=== PATIENT | male | born 1985 | race Caucasian/White ===

== ENCOUNTER 2018-06-20 20:18 | Emergency (ER) | payer OTHER, SELFPAY ==
[2018-06-20 20:34] VITALS: BP 148/66; PULSE 77; RESP 18; TEMP 36.4; O2SAT 99; BMI 25.0
--- NOTE | 2018-06-20 23:18 | PC.NURSE ---
2100: Flushed pt's right with 1l of Normal saline.
[2018-06-21] MEDS: ERYTHROMYCIN OPHTH 1 GM OINT 1 APPLIC EYE-RIGHT (00:46)
[2018-06-21 00:51] VITALS: BP 136/78; PULSE 69; RESP 16; TEMP 36.6; O2SAT 98
--- NOTE | 2018-06-21 06:39 | ED_ITS ---
HPI - Eye Problem General Chief complaint: Eye Problems Stated complaint: ROPE COATING IN EYE Time Seen by Provider: 06/20/18 20:49 Source: patient Mode of arrival: ambulatory Limitations: no limitations History of Present Illness HPI Narrative: Healthy 32-year-old male presents to the emergency department after a work-related injury to his right eye. 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 His tetanus is current he denies the use of corrective vision. He denies other injury and is otherwise well and free of complaints MD chief complaint: eye pain, eye redness, eye injury and vision change Onset (ago): minute(s) Onset description: sudden Duration: constant Location: right eye Eye Symptoms: burning, redness, pain and blurry vision Place: work Mechanism: chemical exposure Severity: mild If Pain, Quality: burning Associated symptoms: none Treatments Prior to Arrival: none Related Data Allergies Allergy/AdvReac Type Severity Reaction Status Date / Time No Known Allergies Allergy Uncoded 06/20/18 20:44 Review of Systems Review of Systems All systems reviewed & are unremarkable except as noted in HPI and below Constitutional Denies chills, Denies fever(s), Denies lethargy and Denies weakness Eyes Reports change in vision, Denies eye discharge, Reports irritation, Denies loss of vision and Reports eye pain ENT Ears, Nose, Mouth, and Throat: Denies change in voice, Denies neck pain and Denies sore throat Cardiovascular Denies chest pain, Denies irregular heart rhythm, Denies lightheadedness, Denies palpitations, Denies dyspnea, Denies dyspnea on exertion and Denies orthopnea Respiratory Denies cough, Denies dyspnea, Denies dyspnea on exertion and Denies wheezing Gastrointestinal Gastrointestinal: Denies abdominal pain, Denies change in bowel habits, Denies diarrhea, Denies nausea and Denies vomiting Genitourinary Denies hematuria, Denies flank pain, Denies urinary incontinence and Denies urinary urgency Musculoskeletal Denies neck pain Integumentary/Breasts Denies pruritus, Denies erythema, Denies rash and Denies wounds Neurologic Denies confusion, Denies loss of vision and Denies weakness Psychiatric Denies anxiety, Denies confusion, Denies depression, Denies homicidal ideation and Denies suicidal ideation Endocrine Denies palpitations Hematologic/Lymphatic Denies easy bruising Allergic/Immunologic Denies wheezing [facility] Social History Smoking Status: Never smoker Exam Narrative Exam Narrative: GEN: AOx3 and in mild distress EYES: Pupils are equal, round, and reactive to light and accommodation. Extraoccular muscles are intact bilaterally. Minimal injection to right eye. No foreign bodies or abrasions noted under Wood's lamp, upper lid everted. We are unable to obtain floor seen anywhere in the hospital. Visual acuity noted in nursing notes. He has near complete resolution of symptoms with use of proparacaine CHEST: Lungs are clear to auscultation bilaterally and free of wheezes, rales, or rhonchi. Heart rate is regular rhythm, there are no murmurs, clicks, rubs, or gallops. There is no chest wall tenderness. ABD: Abdomen is soft and nontender. There is no guarding or rebound. Bowel sounds are normal in all 4 quadrants. There is no mass or organomegaly. EXT: Full painless ROM of all extremities with no loss of sensation or strength. SKIN: Warm, pink, and dry. No erythema or rash Initial Vital Signs Initial Vital Signs: Vital Signs Temperature 97.6 F 06/20/18 20:34 Pulse Rate 77 06/20/18 20:34 Respiratory Rate 18 06/20/18 20:34 Blood Pressure 148/66 H 06/20/18 20:34 Pulse Oximetry 99 06/20/18 20:34 Course Orders Ordered: Discontinued Medications Erythromycin (Erythromycin Ophth Oint) 1 applic EYE-RIGHT NOW ONE Stop: 06/21/18 00:33 Last Admin: 06/21/18 00:46 Dose: 1 applic Reevaluation(s) Reevaluation #1: Patient doing much better after above-stated therapies Consultations Consultation #1: Call to Ophthalmology at our review whom is happy to accept my call. After discussion of the case, including 2 L normal saline and flushed until pH 7.0. She recommends use of erythromycin ointment and follow up with Ophthalmology within 1 week unless there is any change clinically that would dictate a more prompt follow-up Vital Signs - 8 hr 06/21/18 00:51 Temperature 98 F Pulse Rate 69 Respiratory Rate 16 Blood Pressure 136/78 Pulse Oximetry 98 MDM - Eye Problem Lab Data Point of Care Testing pH,Tear Film,POC Measurement pH 7 Critical Care Time Critical Care Time: Yes Total Critical Care Time: 30 Attestation: The high probability of a clinically significant, sudden or life threatening deterioration of the [ocular] system(s) required my full and direct attention, intervention and personal management. The aggregate critical care time was [30] minutes. This time is in addition to time spent performing reported procedures but includes the following: Including multiple calls to the patient's simpler and also supplier of chemicals to track down MSDS as well as call and consultation with [facility] [] Data Review and interpretation [x] Patient assessment and monitoring of vital signs [x] Documentation [x] Medication orders and management Discharge Plan Departure Patient Disposition: Home Clinical Impression: Acute chemical conjunctivitis Discharge Date/Time: 06/21/18 00:52 Interventions: ED Discharge Assessment Last Done: 06/21/18 00:51 Instructions: DI for Conjunctivitis Activity Restrictions/Additional Instructions: *You have been diagnosed with [ chemical conjunctivitis and possible ] *What to do: *Take medications as directed corneal abrasion: Erythromycin ointment, apply to right eye 4 times daily for 7 days *Follow up with Ophthalmology in 2-3 days, call for an appointment. Let them know you were seen in the Emergency Department and that we ask that you be seen in follow up *Return to ER if you should have any new, worsening or concerning symptoms , such as [ worsening pain, change in vision or other concerning symptoms] Referrals: Sparkle Rao MD [Physician] -
== END 2018-06-21 00:52 | disposition home or self-care (01) ==
PROVIDERS: Emergency Provider Emergency Medicine
DX: H10.219 Acute toxic conjunctivitis, unspecified eye (principal); Y99.0 Civilian activity done for income or pay
CPT/HCPCS: 99283

== ENCOUNTER 2019-05-09 00:22 | Emergency (ER) | payer OTHER, SELFPAY ==
[2019-05-09 00:28] VITALS: BP 153/84; PULSE 66; RESP 16; TEMP 36.8; O2SAT 99; BMI 25.0
--- NOTE | 2019-05-09 00:46 | ED.WOUNDLAC ---
HPI - Wound/Laceration General Chief Complaint: Wound/Laceration Stated Complaint: cut head at work Time Seen by Provider: 05/09/19 00:46 Source: patient Mode of arrival: ambulatory Limitations: no limitations History of Present Illness HPI narrative: The patient works for [employer]. In his job he works under the [employer]. 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 He sustained a laceration to the right parietal scalp. There was initial active bleeding. The incident was 10:30 p.m. tonight. There is no bleeding now. He has no pain. There is no visual changes, dizziness or LOC. His tetanus is up-to-date. He has no medical problems. Related Data Allergies Allergy/AdvReac Type Severity Reaction Status Date / Time No Known Allergies Allergy Uncoded 06/20/18 20:44 Review of Systems Review of Systems ROS Unobtainable: All systems reviewed & are unremarkable except as noted in HPI and below Constitutional Denies body ache(s), Denies chills, Denies fatigue, Denies malaise and Denies weakness Eyes Denies change in vision ENT Ears, Nose, Mouth, and Throat: Denies dizziness Comments: Scalp laceration, no other complaints Cardiovascular Denies syncope Integumentary/Breasts Comments: No rashes or other lesions Neurologic Denies dizziness, Denies syncope and Denies weakness Endocrine Denies fatigue [facility] Medical History (Updated 05/09/19 @ 01:21 by Erwin Hughes MD) No acute medical problems (Acute) Surgical History (Updated 05/09/19 @ 01:08 by Erwin Hughes MD) No pertinent past surgical history (Acute) Social History Smoking Status: Never smoker Social History Smoking Status: Never smoker Exam Initial Vital Signs Initial Vital Signs: Vital Signs Temperature 98.2 F 05/09/19 00:28 Pulse Rate 66 05/09/19 00:28 Respiratory Rate 16 05/09/19 00:28 Blood Pressure 153/84 H 05/09/19 00:28 Pulse Oximetry 99 05/09/19 00:28 Const General: cooperative, healthy appearing and comfortable Orientation: alert and oriented x3 HENMT Head: laceration (3 cm linear right parietal laceration, partial thickness. No foreign body.) and No palpable skull fracture Ears: TM's normal bilaterally Face and sinus: normal facial exam Eyes Pupils: PERRL EOM: EOM intact bilaterally Neck Neck: No tender Psych Appearance: well kempt Mental Status: mental status grossly normal Attitude: cooperative Thought Content: normal and suicidality Judgment: judgment good Procedures Laceration Repair Laceration 1: Site: scalp Side (If applicable): right Size (cm): 3 Description: linear and clean Depth: simple, single layer Pre-repair: wound explored and irrigated extensively Number of sutures: 2 Course Vital Signs - 8 hr 05/09/ 00:28 Temperature 98.2 F Pulse Rate 66 Respiratory Rate 16 Blood Pressure 153/84 H Pulse Oximetry 99 Discharge Plan Departure Patient Disposition: Home Clinical Impression: Laceration of scalp Qualifiers: Encounter type: initial encounter Qualified Code(s): S01.01XA - Laceration without foreign body of scalp, initial encounter Instructions: DI for Laceration Repair -- [place] Activity Restrictions/Additional Instructions: You may shower at any time. Tylenol or Advil as needed for pain. Follow-up within 1 week to have the katey removed. Return here if necessary.
--- NOTE | 2019-05-09 01:09 | ED_ITS ---
HPI - Wound/Laceration General Chief Complaint: Wound/Laceration Stated Complaint: cut head at work Time Seen by Provider: 05/09/19 00:46 Source: patient Mode of arrival: ambulatory Limitations: no limitations History of Present Illness HPI narrative: The patient works for [employer]. In his job he works under the [employer]. 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 He sustained a laceration to the right parietal scalp. There was initial active bleeding. The incident was 10:30 p.m. tonight. There is no bleeding now. He has no pain. There is no visual changes, dizziness or LOC. His tetanus is up-to-date. He has no medical problems. Related Data Allergies Allergy/AdvReac Type Severity Reaction Status Date / Time No Known Allergies Allergy Uncoded 06/20/18 20:44 Review of Systems Review of Systems ROS Unobtainable: All systems reviewed & are unremarkable except as noted in HPI and below Constitutional Denies body ache(s), Denies chills, Denies fatigue, Denies malaise and Denies weakness Eyes Denies change in vision ENT Ears, Nose, Mouth, and Throat: Denies dizziness Comments: Scalp laceration, no other complaints Cardiovascular Denies syncope Integumentary/Breasts Comments: No rashes or other lesions Neurologic Denies dizziness, Denies syncope and Denies weakness Endocrine Denies fatigue [facility] Medical History (Updated 05/09/19 @ 01:21 by Erwin Hughes MD) No acute medical problems (Acute) Surgical History (Updated 05/09/19 @ 01:08 by Erwin Hughes MD) No pertinent past surgical history (Acute) Social History Smoking Status: Never smoker Social History Smoking Status: Never smoker Exam Initial Vital Signs Initial Vital Signs: Vital Signs Temperature 98.2 F 05/09/19 00:28 Pulse Rate 66 05/09/19 00:28 Respiratory Rate 16 05/09/19 00:28 Blood Pressure 153/84 H 05/09/19 00:28 Pulse Oximetry 99 05/09/19 00:28 Const General: cooperative, healthy appearing and comfortable Orientation: alert and oriented x3 HENMT Head: laceration (3 cm linear right parietal laceration, partial thickness. No foreign body.) and No palpable skull fracture Ears: TM's normal bilaterally Face and sinus: normal facial exam Eyes Pupils: PERRL EOM: EOM intact bilaterally Neck Neck: No tender Psych Appearance: well kempt Mental Status: mental status grossly normal Attitude: cooperative Thought Content: normal and suicidality Judgment: judgment good Procedures Laceration Repair Laceration 1: Site: scalp Side (If applicable): right Size (cm): 3 Description: linear and clean Depth: simple, single layer Pre-repair: wound explored and irrigated extensively Number of sutures: 2 Course Vital Signs - 8 hr 05/09/ 00:28 Temperature 98.2 F Pulse Rate 66 Respiratory Rate 16 Blood Pressure 153/84 H Pulse Oximetry 99 Discharge Plan Departure Patient Disposition: Home Clinical Impression: Laceration of scalp Qualifiers: Encounter type: initial encounter Qualified Code(s): S01.01XA - Laceration without foreign body of scalp, initial encounter Instructions: DI for Laceration Repair -- [place] Activity Restrictions/Additional Instructions: You may shower at any time. Tylenol or Advil as needed for pain. Follow-up within 1 week to have the katey removed. Return here if necessary.
[2019-05-09 02:02] VITALS: BP 117/68; PULSE 69; RESP 16; O2SAT 98
== END 2019-05-09 01:50 | disposition home or self-care (01) ==
PROVIDERS: Emergency Provider Emergency Medicine
DX: S01.01XA Laceration without foreign body of scalp, initial encounter (principal); W22.8XXA Striking against or struck by other objects, initial encounter; Y99.0 Civilian activity done for income or pay
CPT/HCPCS: 12002; 99282; 99283

== ENCOUNTER → 2019-11-25 08:03 | Outpatient (CLI) | payer OTHER, SELFPAY ==
--- NOTE | 2019-11-25 | DI.MRI.S_ITS ---
PROCEDURE: MR KNEE LT WO CON INDICATIONS: BILATERAL KNEE PAIN TECHNIQUE: Noncontrast sagittal PD fast spin echo and T2 fast spin echo with fat saturation, sagittal 3-D FLASH with fat saturation; coronal T1 spin echo and PD fast spin echo with fat saturation, and axial PD fast spin echo with fat saturation through the knee. COMPARISON: [facility], MR, MR KNEE RT WO CON, 11/25/2019, 8:12. FINDINGS: Image quality: Excellent. Menisci: The medial and lateral menisci demonstrate normal morphology and internal signal. The meniscal root ligaments appear intact. Cruciate ligaments: The anterior and posterior cruciate ligaments appear intact. Medial structures: The medial collateral ligament appears intact. The posterior oblique ligament, semimembranosus tendon insertions, oblique popliteal ligament, and meniscocapsular junction appear intact. Visualized portions of the pes anserinus tendons appear normal. No abnormal bursal fluid. Lateral structures: The lateral collateral ligament, long and short heads of the biceps femoris tendon appear intact. The popliteus tendon appears normal; the popliteofibular ligament appears intact. The posterosuperior and anteroinferior popliteomeniscal fascicles appear intact. The arcuate and fabellofibular ligaments appear intact, on either side of the lateral inferior geniculate artery. Iliotibial band appears normal. Anterior structures: The quadriceps and patellar tendons appear intact. Patellar alignment is normal. No femoral trochlear dysplasia or ventral trochlear prominence. No edema in the infrapatellar fat pad. Bones and cartilage: No bone marrow contusions or fractures. Low grade chondromalacia involving weight-bearing portion of medial femoral condyle is seen. Articulating cartilages in lateral femoral tibial compartment and patella cartilage are intact. Joint space: There is physiologic knee joint fluid. No Cooper's cyst. Normal appearing synovial plicae are incidentally noted. IMPRESSION: 1. 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 No marrow edema. No fracture or dislocation. 2. Cruciate ligaments are intact. No evidence of focal meniscal tear. Dictated by: Baudilio Tapia M.D. on 11/25/2019 at 9:36 Approved by: Baudilio Tapia M.D. on 11/25/2019 at 9:44
--- NOTE | 2019-11-25 | DI.MRI.S_ITS ---
PROCEDURE: MR KNEE RT WO CON INDICATIONS: BILATERAL KNEE PAIN TECHNIQUE: Noncontrast sagittal PD fast spin echo and T2 fast spin echo with fat saturation, sagittal 3-D FLASH with fat saturation; coronal T1 spin echo and PD fast spin echo with fat saturation, and axial PD fast spin echo with fat saturation through the knee. COMPARISON: None. FINDINGS: Image quality: Excellent. Menisci: The medial and lateral menisci demonstrate normal morphology and internal signal. The meniscal root ligaments appear intact. Cruciate ligaments: The anterior and posterior cruciate ligaments appear intact. Medial structures: The medial collateral ligament appears intact. The posterior oblique ligament, semimembranosus tendon insertions, oblique popliteal ligament, and meniscocapsular junction appear intact. Visualized portions of the pes anserinus tendons appear normal. No abnormal bursal fluid. Lateral structures: The lateral collateral ligament, long and short heads of the biceps femoris tendon appear intact. The popliteus tendon appears normal; the popliteofibular ligament appears intact. The posterosuperior and anteroinferior popliteomeniscal fascicles appear intact. The arcuate and fabellofibular ligaments appear intact, on either side of the lateral inferior geniculate artery. Iliotibial band appears normal. Anterior structures: The quadriceps and patellar tendons appear intact. Patellar alignment is normal. No femoral trochlear dysplasia or ventral trochlear prominence. No edema in the infrapatellar fat pad. Bones and cartilage: No bone marrow contusions or fractures. 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 Low-grade chondromalacia involving lateral facet of patella cartilage the apex is also noted. Joint space: There is small amount of knee joint fluid. No Cooper's cyst. Normal appearing synovial plicae are incidentally noted. IMPRESSION: 1. Cruciate ligaments are intact. 2. No evidence of focal meniscal tear. 3. Low-grade chondromalacia in medial femoral-tibial compartment and lateral facet of patella cartilage near apex. Dictated by: Baudilio Tapia M.D. on 11/25/2019 at 9:24 Approved by: Baudilio Tapia M.D. on 11/25/2019 at 9:35
== END ==
PROVIDERS: PCP Student in an Organized Health Care Education/Training Program; Referring Provider Student in an Organized Health Care Education/Training Program; Visit Provider Student in an Organized Health Care Education/Training Program
DX: M25.561 Pain in right knee (principal); M25.562 Pain in left knee; M94.262 Chondromalacia, left knee; M94.261 Chondromalacia, right knee
CPT/HCPCS: 73721

== ENCOUNTER 2020-08-08 20:17 | Emergency (ER) | payer OTHER, SELFPAY ==
[2020-08-08 20:20] VITALS: BP 141/82; PULSE 97; RESP 18; TEMP 36.4; O2SAT 96; BMI 25.8
--- NOTE | 2020-08-08 20:22 | ED.EYEPROB ---
HPI - Eye Problem General Chief complaint: Eye Problems Stated complaint: SOMETHING IN RIGHT EYE Time Seen by Provider: 08/08/20 20:22 Source: patient Mode of arrival: Ambulatory Limitations: no limitations History of Present Illness HPI Narrative: 35M never smoker with non contributory medical history presents with the chief complaint of an accidental injury to his right eye while working tonight. 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 Within minutes he was taken to the irrigation station where he was treated for 15 minutes. He denies any change in vision. He does not wear contacts. He still has a foreign body sensation in the medial aspect of his right eye. He denies any drainage. MD chief complaint: eye pain Onset (ago): hour(s) Onset description: sudden Duration: improved Location: right eye Eye Symptoms: burning, redness, pain and foreign body sensation Place: home Mechanism: direct trauma Severity: moderate If Pain, Quality: aching Context: trauma Treatments Prior to Arrival: irrigated eye Related Data Patient tetanus UTD: No Allergies Allergy/AdvReac Type Severity Reaction Status Date / Time No Known Allergies Allergy Uncoded 06/20/18 20:44 Review of Systems Constitutional Constitutional: Denies chills, Denies fatigue, Denies fever(s), Denies frequent falls, Denies lethargy and Denies weakness Eyes Eyes: Denies change in vision, Denies eye discharge, Reports irritation, Denies loss of vision and Reports eye pain ENT Ears, Nose, Mouth, and Throat: Denies change in voice, Denies dizziness, Denies neck pain, Denies sore throat and Denies throat swelling Cardiovascular Cardiovascular: Denies chest pain, Denies irregular heart rhythm, Denies lightheadedness, Denies palpitations, Denies dyspnea, Denies dyspnea on exertion and Denies orthopnea Respiratory Respiratory: Denies cough, Denies dyspnea, Denies dyspnea on exertion and Denies wheezing Gastrointestinal Gastrointestinal: Denies abdominal pain, Denies change in bowel habits, Denies diarrhea, Denies nausea and Denies vomiting Musculoskeletal Musculoskeletal: Denies neck pain and Denies numbness Integumentary/Breasts Skin/Breast: Denies pruritus, Denies erythema, Denies rash and Denies wounds Neurologic Neurologic: Denies behavioral changes, Denies confusion, Denies dizziness, Denies frequent falls, Denies loss of vision, Denies numbness and Denies weakness Psychiatric Psychiatric: Denies anxiety, Denies behavioral changes, Denies confusion, Denies depression, Denies homicidal ideation and Denies suicidal ideation Endocrine Endocrine: Denies fatigue, Denies flushing and Denies palpitations Hematologic/Lymphatic Hematologic/Lymphatic: Denies easy bruising Allergic/Immunologic Allergic/Immunologic: Denies urticaria, Denies throat swelling and Denies wheezing Patient History Medical History (Updated 08/08/20 @ 22:19 by Gaudencio Mercer DO) No acute medical problems (Acute) Surgical History (Updated 05/09/19 @ 01:08 by Erwin Hughes MD) No pertinent past surgical history (Acute) Social History Smoking Status: Never smoker Smoking Status: Never smoker alcohol intake frequency: 0-2 drinks per day Substance Use Type: does not use Exam Narrative Exam Narrative: GEN: AOx3 and in mild distress EYES: Pupils are equal, round, and reactive to light and accommodation. Extraoccular muscles are intact bilaterally. Mild injection of right sclera, near complete resolution of symptoms with use of proparacaine. NO FB noted. Upper lid everted. No dye uptake with use of UV lamp. CHEST: Lungs are clear to auscultation bilaterally and free of wheezes, rales, or rhonchi. Heart rate is regular rhythm, there are no murmurs, clicks, rubs, or gallops. There is no chest wall tenderness. ABD: Abdomen is soft and nontender. There is no guarding or rebound. Bowel sounds are normal in all 4 quadrants. There is no mass or organomegaly. EXT: Full painless ROM of all extremities with no loss of sensation or strength. SKIN: Warm, pink, and dry. No erythema or rash Initial Vital Signs Initial Vital Signs: Vital Signs Temperature 97.5 F L 08/08/20 20:20 Pulse Rate 97 H 08/08/20 20:20 Respiratory Rate 18 08/08/20 20:20 Blood Pressure 141/82 H 08/08/20 20:20 Pulse Oximetry 96 08/08/20 20:20 Course Orders Ordered: Discontinued Medications Diphtheria/Tetanus/Acell Pertussis (Adacel) 0.5 ml IM .ONCE ONE Stop: 08/08/20 22:04 Last Admin: 10/19/20 22:08 Dose: 0.5 ml Documented by: LEOPOLDO Erythromycin (Erythromycin Ophth Oint) 1 applic EYE-RIGHT NOW ONE Stop: 08/08/20 22:19 Last Admin: 08/08/20 22:23 Dose: 1 applic Documented by: LEOPOLDO Fluorescein Sodium (Ful-Vi) 1 mg EYE-RIGHT NOW ONE Stop: 08/08/20 21:18 Last Admin: 08/08/20 22:00 Dose: 1 mg Documented by: LEOPOLDO Proparacaine HCl (Parcaine 0.5% Ophth Molly) 1 drops EYE-RIGHT NOW ONE Stop: 08/08/20 21:18 Last Admin: 08/08/20 22:01 Dose: 0.5 % Documented by: LEOPOLDO Vital Signs Vital signs: Vital Signs - 8 hr 08/08/20 20:20 08/08/20 22:20 Temperature 97.5 F L Pulse Rate 97 H 82 Respiratory Rate 18 12 Blood Pressure 141/82 H 135/92 H Pulse Oximetry 96 98 Discharge Plan Departure Patient Disposition: Home Clinical Impression: Acute foreign body of right eye Qualifiers: Encounter type: initial encounter Qualified Code(s): T15.91XA - Foreign body on external eye, part unspecified, right eye, initial encounter Discharge Date/Time: 08/08/20 22:20 Instructions: DI for Eye Pain Activity Restrictions/Additional Instructions: *You have been diagnosed with [right eye pain, likely secondary to removed foreign body] *What to do: *Take medications as directed *Follow up with your eye doctor in 2-3 days, call for an appointment. Let them know you were seen in the Emergency Department and that we ask that you be seen in follow up *Return to ER if you should have any new, worsening or concerning symptoms, such as [worsening pain, drainage, change in vision or other bothersome symptoms] Referrals: Christal Pritchett MD [Primary Care Provider] - Stand Alone Forms: Work Release Note
[2020-08-08] MEDS: FLUORESCEIN 1 MG STRIP EYE-RIGHT (22:00)
[2020-08-08] MEDS: PROPARACAINE 0.5% OPHTH SOL 1 DROPS EYE-RIGHT (22:01)
[2020-08-08] MEDS: TET,DIPH,PERTUSS(ACELL),VAC/PF 0.5 ML SYRINGE IM (22:08)
--- NOTE | 2020-08-08 22:17 | PC.NURSE ---
R eye pH 7
[2020-08-08 22:20] VITALS: BP 135/92; PULSE 82; RESP 12; O2SAT 98
[2020-08-08] MEDS: ERYTHROMYCIN OPHTH 1 GM OINT 1 APPLIC EYE-RIGHT (22:23)
== END 2020-08-08 22:20 | disposition home or self-care (01) ==
PROVIDERS: Emergency Provider Emergency Medicine; PCP Student in an Organized Health Care Education/Training Program
DX: T15.91XA Foreign body on external eye, part unspecified, right eye, initial encounter (principal); Y99.0 Civilian activity done for income or pay; Z23 Encounter for immunization
CPT/HCPCS: 90471; 99283; 90715

== ENCOUNTER 2021-02-16 18:14 | Emergency (ER) | payer OTHER, SELFPAY ==
--- NOTE | 2021-02-16 18:23 | DI.RAD.S_ITS ---
PROCEDURE: XR CHEST 1V INDICATIONS: chest pain TECHNIQUE: One view of the chest was acquired. COMPARISON: None. FINDINGS: Surgical changes and devices: None. Lungs and pleura: Lungs are clear. No pleural effusions or pneumothorax. Mediastinum: Mediastinal contours appear normal. Heart size is normal. Bones and chest wall: No suspicious bony lesions. Overlying soft tissues appear unremarkable. IMPRESSION: No acute cardiopulmonary abnormality. Dictated by: Luigi Torres M.D. on 02/16/2021 at 18:41 Approved by: Luigi Torres M.D. on 02/16/2021 at 18:42
[2021-02-16 18:24] VITALS: BP 126/89; PULSE 98; RESP 14; TEMP 36.9; O2SAT 98; BMI 26.1
[2021-02-16 18:55] LABS: Add Manual Diff / Slide Review NO; Basophils Absolute Auto 0 /uL (0-100); Basophils Percent Auto 0.8 % (0-2); Eosinophils Absolute Auto 400 /uL (0-450); Eosinophils Percent Auto 7.5 % (2-4); Hematocrit 41.8 % (41-53); Hemoglobin 14.4 g/dL (13.5-17.5); Lymphocytes Absolute Auto 1600 /uL (1100-4500); Lymphocytes Percent Auto 28.6 % (25-40); Mean Corpuscular HGB Conc 34.5 % (30-36); Mean Corpuscular Hemoglobin 29.9 PG (26-34); Mean Corpuscular Volume 86.5 fL (80-100); Monocytes Absolute Auto 500 /uL (0-900); Monocytes Percent Auto 8.3 % (3-14); Neutrophils Absolute Auto 3100 /uL (1500-7000); Neutrophils Percent Auto 54.8 % (50-75); Platelet Count 205 X10^3/uL (150-400); Red Blood Cell Count 4.83 X10^6/uL (4.5-5.9); Red Cell Distribution Width 13.5 % (11.6-14.8); White Blood Cell Count 5.6 X10^3/uL (4.5-11.0)
[2021-02-16 19:00] VITALS: BP 136/71; PULSE 84; O2SAT 97
[2021-02-16 19:03] LABS: Alanine Aminotransferase 44 IU/L (<50); Albumin 4.3 g/dL (3.5-5.0); Albumin Globulin Ratio 1.5 (1.0-2.8); Alkaline Phosphatase 46 U/L (38-126); Aspartate Aminotransferase 35 IU/L (17-59); BUN Creatinine Ratio 18.8 (6-22); Bilirubin Total 0.3 mg/dL (0.2-1.3); Blood Urea Nitrogen 19 mg/dL (9-20); Calcium 9.1 mg/dL (8.4-10.2); Carbon Dioxide 23 mmol/L (22-32); Chloride 105 mmol/L (98-107); Creatine Kinase 118 U/L (55-170); Estimated Glomerular Filt Rate > 60.0 mL/min (>60); Globulin 2.8 g/dL (1.7-4.1); Glucose 121 mg/dL (70-100); HEMOLYSIS 31 (0-50); Lipase 138 U/L (23-300); Potassium 3.5 mmol/L (3.4-5.1); Sodium 138 mmol/L (137-145); Total Protein 7.1 g/dL (6.3-8.2)
[2021-02-16 19:09] LABS: INR 1.1 (0.9-1.3); Prothrombin Time 12.3 SECONDS (10.1-12.7)
[2021-02-16 19:12] LABS: PTT Partial Thromboplastin Tim 28 SECONDS (26.4-36.2)
[2021-02-16 19:15] LABS: Troponin I < 0.012 ng/mL (0.01-0.034)
[2021-02-16 19:18] LABS: CKMB % Relative Index 0.6 % (1.5-5.0); Creatine Kinase MB 0.68 ng/mL (<2.37)
[2021-02-16 19:30] VITALS: PULSE 74; O2SAT 96
[2021-02-16 19:31] VITALS: BP 147/83; PULSE 75; O2SAT 97
--- NOTE | 2021-02-16 19:33 | ED.CHESTPAIN ---
HPI - Chest Pain General Chief Complaint: Chest Pain Stated Complaint: sweaty, dizzy, CP Time Seen by Provider: 02/16/21 19:32 Source: patient Mode of arrival: Ambulatory Limitations: no limitations History of Present Illness HPI narrative: Who presents with dizziness and lightheadedness on today while he was driving to work. When he got to work he was still dizzy and lightheaded he did not pass out. He was sent to medical wrist found to be slightly tachycardic with heart rate of 113 and blood pressure in the 160s. He was instructed to drive himself to the ER for further evaluation. He states he was started on prazosin for night terrors and blood pressure. He said he was instructed to take it in the middle of the day so he takes it before he goes to work. He has been taking it for a week and has not had any issues until today. He currently is feeling fine he occasionally has a fluttering in his chest but denies any real chest pain or shortness of breath. MD complaint: other Duration: improved Onset: during rest Related Data Previous Rx's Medication Instructions Recorded amoxicillin 875 mg-potassium 1 tab PO BID #20 tab 01/25/21 clavulanate 125 mg tablet Allergies Allergy/AdvReac Type Severity Reaction Status Date / Time No Known Drug Allergies Allergy Verified 02/16/21 18:24 Review of Systems Review of Systems ROS Unobtainable: All systems reviewed & are unremarkable except as noted in HPI and below Constitutional Constitutional: Denies chills, Denies fever(s), Denies lethargy and Denies weakness ENT Ears, Nose, Mouth, and Throat: Denies change in voice, Denies vertigo, Denies dizziness, Denies neck pain and Denies sore throat Cardiovascular Cardiovascular: Reports chest pain, Denies leg edema, Reports lightheadedness, Denies palpitations, Denies dyspnea on exertion and Denies orthopnea Respiratory Respiratory: Denies cough and Denies dyspnea on exertion Gastrointestinal Gastrointestinal: Denies abdominal pain, Denies change in bowel habits, Denies diarrhea, Denies nausea and Denies vomiting Musculoskeletal Musculoskeletal: Denies back pain and Denies neck pain Integumentary/Breasts Skin/Breast: Denies pruritus, Denies erythema, Denies rash and Denies wounds Neurologic Neurologic: Denies vertigo, Denies dizziness and Denies weakness Endocrine Endocrine: Denies palpitations Patient History Medical History No acute medical problems Right otitis media Surgical History No pertinent past surgical history Social History Smoking Status: Never smoker Smoking Status: Never smoker alcohol intake frequency: holidays/special occasions only Substance Use Type: does not use Exam Initial Vital Signs Initial Vital Signs: Vital Signs Temperature 98.5 F 02/16/21 18:24 Pulse Rate 98 H 02/16/21 18:24 Respiratory Rate 14 02/16/21 18:24 Blood Pressure 126/89 02/16/21 18:24 Pulse Oximetry 98 02/16/21 18:24 GENERAL: Well-appearing, well-nourished and in no acute distress. HEENT: Head atraumatic,EOMI, pupils reactive, face symmetric, moist mucous membranes CARDIOVASCULAR: Regular rate and rhythm without murmurs, rubs or gallops. RESPIRATORY: Breath sounds equal bilaterally, no wheezes rales or rhonchi. ABDOMEN: Soft, nontender. Normoactive bowel sounds all 4 quadrants. No guarding or rebound. EXTREMITIES: Normal range of motion, no clubbing or edema. Neurovascularly intact NEUROLOGICAL: Alert and oriented x4.Normal gait and speech. SKIN: Warm, dry, no laceration, no petechiae, no rashes or lesions. Course Orders Ordered: ED Orders 02/16/21 18:23 XR chest 1V Stat Complete Blood Count AUTO DIFF Stat Comprehensive Metabolic Panel Stat Lipase Stat Partial Thromboplastin Time Stat Prothrombin Time INR Stat Troponin & CK Cardiac Panel Stat EKG-12 Lead Stat Vital Signs Vital signs: Vital Signs - 8 hr 02/16/21 18:24 02/16/21 19:00 02/16/21 19:30 Temperature 98.5 F Pulse Rate 98 H 84 74 Respiratory Rate 14 Blood Pressure 126/89 136/71 Pulse Oximetry 98 97 96 02/16/21 19:31 Temperature Pulse Rate 75 Respiratory Rate Blood Pressure 147/83 H Pulse Oximetry 97 MDM - Chest Pain Lab Data Attestation: I reviewed the patient's lab results. Result diagrams: 02/16/21 18:23 02/16/21 18:23 Labs: Lab Results 02/16/21 02/16/21 02/16/21 Range/Units 18:23 18:23 18:23 WBC 5.6 (4.5-11.0) X10^3/uL RBC 4.83 (4.5-5.9) X10^6/uL Hgb 14.4 (13.5-17.5) g/dL Hct 41.8 (41-53) % MCV 86.5 (80-100) fL MCH 29.9 (26-34) PG MCHC 34.5 (30-36) % RDW 13.5 (11.6-14.8) % Plt Count 205 (150-400) X10^3/uL Neut % (Auto) 54.8 (50-75) % Lymph % (Auto) 28.6 (25-40) % [place] % (Auto) 8.3 (3-14) % Eos % (Auto) 7.5 H (2-4) % Baso % (Auto) 0.8 (0-2) % Neut # (Auto) 3100 (8865-3211) /uL Lymph # (Auto) 1600 (2920-0945) /uL [place] # (Auto) 500 (0-900) /uL Eos # (Auto) 400 (0-450) /uL Baso # (Auto) 0 (0-100) /uL PT 12.3 (10.1-12.7) SECONDS INR 1.1 (0.9-1.3) APTT 28 (26.4-36.2) SECONDS Sodium 138 (137-145) mmol/L Potassium 3.5 (3.4-5.1) mmol/L Chloride 105 (98-107) mmol/L Carbon Dioxide 23 (22-32) mmol/L BUN 19 (9-20) mg/dL Creatinine 1.01 (0.66-1.25) mg/dL Estimated GFR > 60.0 (>60) mL/min BUN/Creatinine Ratio 18.8 (6-22) Glucose 121 H (70-100) mg/dL Calcium 9.1 (8.4-10.2) mg/dL Total Bilirubin 0.3 (0.2-1.3) mg/dL AST 35 (17-59) IU/L ALT 44 (<50) IU/L Alkaline Phosphatase 46 (38-126) U/L Total Creatine Kinase 118 (55-170) U/L CK-MB (CK-2) 0.68 (<2.37) ng/mL CK-MB (CK-2) Rel Index 0.6 L (1.5-5.0) % Troponin I < 0.012 (0.01-0.034) ng/mL Total Protein 7.1 (6.3-8.2) g/dL Albumin 4.3 (3.5-5.0) g/dL Globulin 2.8 (1.7-4.1) g/dL Albumin/Globulin Ratio 1.5 (1.0-2.8) Lipase 138 (23-300) U/L Imaging Data Chest x-ray: Radiologist's Impression: PROCEDURE: XR CHEST 1V INDICATIONS: chest pain TECHNIQUE: One view of the chest was acquired. COMPARISON: None. FINDINGS: Surgical changes and devices: None. Lungs and pleura: Lungs are clear. No pleural effusions or pneumothorax. Mediastinum: Mediastinal contours appear normal. Heart size is normal. Bones and chest wall: No suspicious bony lesions. Overlying soft tissues appear unremarkable. IMPRESSION: No acute cardiopulmonary abnormality. Dictated by: Luigi Torres M.D. on 02/16/2021 at 18:41 ECG Data Attestation: I personally reviewed and interpreted this ECG as follows: Interpretation: Normal sinus rhythm rate 83 p.r. interval 154 QRS [address] changes or T-wave inversions MDM Narrative Medical decision making narrative: Patient's symptoms are likely related to his new medication. At this time I recommend he take it at night before bed to help with night terrors rather than make it a primary blood pressure medication. I discussed this with him he will call the [facility] tomorrow and discuss options. Discharge Plan Departure Patient Disposition: Home Clinical Impression: Medication reaction Qualifiers: Encounter type: initial encounter Qualified Code(s): T50.905A - Adverse effect of unspecified drugs, medicaments and biological substances, initial encounter Instructions: Prazosin Activity Restrictions/Additional Instructions: *You have been diagnosed with medication reaction *What to do: At this time I believe your symptoms are related to your new medication. I recommend taking medication before bed to see if that helps. And certainly call your provider tomorrow and let them know your reaction. *Continue to take medications as directed *Follow up with your primary care provider in 2-3 days *Return to ER if you should have chest pain dizziness lightheadedness passing out or any new, worsening or concerning symptoms Prescriptions: No Action amoxicillin-pot clavulanate [Augmentin] 875-125 mg tablet 1 tab PO BID Qty: 20 RF: 0 Referrals: Christal Pritchett MD [Primary Care Provider] -
== END 2021-02-16 20:04 | disposition home or self-care (01) ==
PROVIDERS: Emergency Provider Emergency Medicine; PCP Student in an Organized Health Care Education/Training Program
DX: R07.9 Chest pain, unspecified (principal); R00.0 Tachycardia, unspecified; R42 Dizziness and giddiness; T50.905A Adverse effect of unspecified drugs, medicaments and biological substances, initial encounter
CPT/HCPCS: 36415; 71045; 80053; 82550; 82553; 83690; 84484; 85025; 85610; 85730; 93005; 99284